=== PATIENT | female | born 1980 | race Caucasian/White ===

== ENCOUNTER 2016-12-26 04:45 | Emergency (ER) | payer OTHER ==
[~2016-12-26] VITALS: Ht 157.5 cm; Wt 46.7 kg
[2016-12-26 04:48] VITALS: BP 98/68
--- NOTE | 2016-12-26 04:59 | NUR ---
TO ER BED 7
--- NOTE | 2016-12-26 05:02 | NUR ---
PT IS 36/F BIB SELF TO ED WITH C/O NAUSEA THAT STARTED THIS MORNING AND BODYACHES FOR 2 WEEKS. PT WAS SEEN BY PMD AND WAS GIVEN A PRESCRIPTION OF MOTRIN. PT STATES NO MED HX. DENIES V/D; SKIN IS PINK/WARM/DRY; AAOX4 WITH EVEN AND STEADY GAIT; LUNGS CLEAR BL; HR EVEN AND REGULAR; PT DENIES ANY FEVER, CP, SOB, OR COUGH AT THIS TIME; PATIENT STATES PAIN OF 8/10 AT THIS TIME; VSS; PATIENT POSITIONED FOR COMFORT; HOB ELEVATED; BEDRAILS UP X2; BED DOWN. ER MD MADE AWARE OF PT STATUS.
--- NOTE | 2016-12-26 05:12 | NUR ---
Patient being evaluated by physician at bedside.
--- NOTE | 2016-12-26 06:31 | NUR ---
PT RESTING IN BED. NO SOB NOTED AT THIS TIME. WILL CONTINUE TO MONITOR.
--- NOTE | 2016-12-26 07:20 | NUR ---
Received report from casino shift manager nurse Hal. Patient found resting comfortably in bed. All needs met. Patient is AOX4, appears calm and relaxed.
[2016-12-26 08:24] VITALS: BP 95/66
--- NOTE | 2016-12-26 08:25 | NUR ---
DPatient discharged with v/s stable. Written and verbal after care instructions given and explained. Patient alert, oriented and verbalized understanding of instructions. Ambulatory with steady gait. All questions addressed prior to discharge. ID band removed. Patient advised to follow up with PMD. Rx of TRAMADOL 50MG/TAB given. Patient educated on indication of medication including possible reaction and side effects. Opportunity to ask questions provided and answered.
== END 2016-12-26 08:24 | disposition home or self-care (01) ==
LOC: MED 04:45
DX: R52 Pain, unspecified (principal); R53.81 Other malaise; R11.2 Nausea with vomiting, unspecified; F17.200 Nicotine dependence, unspecified, uncomplicated; Z88.0 Allergy status to penicillin

== ENCOUNTER 2016-12-26 22:33 | Emergency (ER) | payer OTHER ==
[~2016-12-26] VITALS: Ht 157.5 cm; Wt 46.8 kg
[2016-12-26 22:39] VITALS: BP 117/80
--- NOTE | 2016-12-27 00:35 | NUR ---
PATIENT LEFT WITHOUT BEING SEEN BY DR. GARCIA. NO FURTHER CARE PROVIDED FOR PATIENT.
== END 2016-12-27 00:35 | disposition left against medical advice (07) ==
LOC: MED 22:33
DX: R20.0 Anesthesia of skin (principal); Z53.21 Procedure and treatment not carried out due to patient leaving prior to being seen by health care provider

== ENCOUNTER 2017-05-23 11:24 | Emergency (ER) | payer MEDICAID, OTHER ==
[~2017-05-23] VITALS: Ht 160 cm; Wt 47.9 kg
[2017-05-23 11:31] VITALS: BP 122/87
[2017-05-23] MEDS ORDERED: NACL 0.9% 1,000 ML IV ONE (11:45)
--- NOTE | 2017-05-23 11:49 | NUR ---
PATIENT AMBULATED TO ER BED 8.
--- NOTE | 2017-05-23 11:50 | NUR ---
PATIENT PRESENTS TO ED WITH C/O DIZZINESS UPON STANDING FROM SEATED POSITION AND VAGINAL BLEEDING X 1MONTH USES 3 [facility] [place]/DAY;PT ALSO C/O ANTERIOR CHEST WALL PRESSURE TYPE PAIN AND FATIGUES WITH MILD ACTIVITIES X 3 MONTHS .SKIN IS PINK/WARM/DRY; AAOX4 WITH EVEN AND STEADY GAIT; LUNGS CLEAR BL; HR EVEN AND REGULAR; PT DENIES ANY FEVER, OR COUGH AT THIS TIME; PATIENT STATES PAIN OF 7/10 AT THIS TIME;PATIENT POSITIONED FOR COMFORT; HOB ELEVATED; BEDRAILS UP X2; BED DOWN.ALL MONITORS IN PLACED; ER MD MADE AWARE OF PT STATUS.
[2017-05-23 11:55] LABS: BASOPHILS # (AUTO) 0.2 K/uL (0.00-0.22); BASOPHILS % (AUTO) 2.8 % (0.0-2.0); EOSINOPHILS # (AUTO) 0.1 K/uL (0-0.4); EOSINOPHILS % (AUTO) 1.3 % (0.0-4.0); HEMOGLOBIN 13.7 g/dL (12.0-16.0); LYMPHOCYTES % (AUTO) 25.3 % (20.5-51.1); MEAN CORPUSCULAR HEMOGLOBIN 30 pg (27-31); MEAN CORPUSCULAR HGB CONC 33 g/dL (33-37); MEAN CORPUSCULAR VOLUME 91 fL (80-94); MONOCYTES # (AUTO) 0.4 K/uL (0.8-1.0); MONOCYTES % (AUTO) 4.9 % (1.7-9.3); NEUTROPHILS # (AUTO) 5.4 K/uL (1.8-7.7); NEUTROPHILS % (AUTO) 65.7 % (42.2-75.2); PLATELET COUNT (AUTO) 351 K/uL (140-450); WHITE BLOOD COUNT (AUTO) 8.1 K/uL (4.8-10.8)
[2017-05-23 12:03] LABS: ANION GAP 8.4 (8-16); CALCIUM 9.5 mg/dL (8.5-10.1); CARBON DIOXIDE 30.2 mmol/L (21-32); CREATININE 0.9 mg/dL (0.6-1.3); POTASSIUM 3.6 mmol/L (3.5-5.1)
[2017-05-23 12:07] LABS: PARTIAL THROMBOPLASTIN TIME 27.4 secs (22-35.6); PROTHROMBIN TIME 10.5 secs (10.8-13.4)
[2017-05-23 12:09] LABS: ALBUMIN 4.1 g/dL (3.4-5.0); TOTAL BILIRUBIN 0.6 mg/dL (0.0-1.0); TOTAL PROTEIN, SERUM 8.3 g/dL (6.4-8.2)
--- NOTE | 2017-05-23 12:20 | NUR ---
PATIENT BEING EVALUATED BY DR. REYES.
--- NOTE | 2017-05-23 13:20 | NUR ---
WENT TO ULTRASOUND ACCOMPANIED BY TECH.
--- NOTE | 2017-05-23 13:30 | NUR ---
BACK ULTRASOUND ACCOMPANIED BY TECH.
--- NOTE | 2017-05-23 13:36 | NUR ---
PT WENT TO THE RESTROOM ACCOMPANIED BY HER MOTHER;PT STATES SHE CAN GO TO THE RESTROOM.
[2017-05-23 13:55] VITALS: BP 122/87
--- NOTE | 2017-05-23 13:55 | NUR ---
Patient discharged with v/s stable. Written and verbal after care instructions given and explained.Patient alert, oriented and verbalized understanding of instructions. Ambulatory with steady gait. All questions addressed prior to discharge. ID band removed. Patient advised to follow up with PMD. Rx of TRAMADOLA AND PREMARIN given. Patient educated on indication of medication including possible reaction and side effects. Opportunity to ask questions provided and answered.
== END 2017-05-23 13:55 | disposition home or self-care (01) ==
LOC: MED 11:24
DX: N93.8 Other specified abnormal uterine and vaginal bleeding (principal); Z88.0 Allergy status to penicillin; I25.10 Atherosclerotic heart disease of native coronary artery without angina pectoris
CPT/HCPCS: 36415; 76856; 80053; 81025; 85025; 85610; 85730; 96360; 99285; J7030; Q0092